=== PATIENT | female | born 1970 | race African-American/Black ===

== ENCOUNTER 2016-12-17 08:20 | Emergency (ER) | payer OTHER ==
[~2016-12-17 08:20] MED LIST: AMOXICILLIN500 M1 PO; BACTRIM DS TABL1 TA1 PO; BACTRIM DS TABL1 TA2 PO; CHLOROSEPTIC SPRAY; CIPRO PO; CLARITHROMYCIN500 MG PO; DIFLUCAN100 MG PO; K-DUR20 ME1 DOB; LORTAB 5-325 M1 EACH PO; MELOXICAM15 MG PO; MOTRIN600 M2 PO; MUCINEX PO; NAPROSYN250 M1 PO; NO MEDICATIONS; NORCO1 TAB 10/3 PO; PEPTO-BISMOL262 M1 PO; PHENERGAN W/CO120 ML PO; PRILOSEC20 MG DOB; PYRIDIUM PO; ULTRAM PO; VICODIN 5/1 TAB 5/50 PO
== END 2016-12-17 08:54 | disposition home or self-care (01) ==
LOC: SED 08:20
DX: J40 Bronchitis, not specified as acute or chronic (principal)
CPT/HCPCS: 99282

== ENCOUNTER → 2017-01-14 | Outpatient (CLI) | payer OTHER ==
--- NOTE | ~2017-01-14 | MY11 ---
[facility] A Service of [facility] RADIOLOGY TEXT RESULTS PATIENT: LAURA MCINTYRE LOCATION: [facility] : 72 UNIT #: [id number] AGE: [address]: Ricci Perdomo MD SEX: F ORDER DR: [id number] [facility] [address] [place], [place] [address] [id number] O MR#: [id number] Acc #: [id number] NAME: LAURA MCINTYRE : 1970 SEX: F STUDY DATE/TIME: 01/14/2017 9:25 UNIT: [facility] ROOM: STUDY DESCRIPTION: MY Mammogram Screening Dig Kg Attending Physician: Sophie Perdomo M.D. Ordering Physician: Sophie Perdomo M.D. Primary Care Physician: Adolfo Soares M.D. MEDICAL IMAGING REPORT This report is preliminary unless electronic signature is present EXAM Digital screening mammogram, 01/14/2017, [facility]. HISTORY 46-year-old woman no risk elevation. Annual screen. COMPARISON Mammograms date to 08/20/2009 with most recent 08/13/2015. FINDINGS Digital imaging of each breast was completed utilizing a two-view examination of each breast in craniocaudal and mediolateral-oblique projections. Review and interpretation of digital mammograms include a second review in conjunction with FDA-approved CAD device. There is a normal parenchymal presentation bilaterally consistent with the patient's age. There are no breast masses imaged and no parenchymal asymmetry is visualized. There are no suspicious microcalcifications and I see no focal architectural disturbance. IMPRESSION Negative screening digital mammogram. One-year followup recommended. Patients over the age of 40 are entered into a reminder system with target due date for the next mammogram. A result letter will also be sent to the patient. BIRADS: 1 Negative Dictated by... Mikal Hopson M.D. [facility] A Service [facility] RADIOLOGY TEXT RESULTS PATIENT: LAURA MCINTYRE LOCATION: [facility] : 72 UNIT #: [id number] AGE: [address]: Ricci Perdomo MD SEX: F ORDER DR: THIS IS AN ELECTRONICALLY VERIFIED REPORT Mikal Hopson M.D. at 01/14/2017 11:30 AM Doni TD: 01/14/2017 11:13 JOB #: [id number] MEDICAL IMAGING REPORT Page 1 of 1 COPY
== END | disposition home or self-care (01) ==
LOC: CWCC 08:37
DX: Z12.31 Encounter for screening mammogram for malignant neoplasm of breast (principal)
CPT/HCPCS: G0202

== ENCOUNTER 2017-04-25 01:52 | Emergency (ER) | payer OTHER ==
[~2017-04-25] VITALS: Ht 165.1 cm; Wt 86.2 kg
== END 2017-04-25 02:32 | disposition home or self-care (01) ==
LOC: SED 01:52
DX: J06.9 Acute upper respiratory infection, unspecified (principal); Z90.710 Acquired absence of both cervix and uterus
CPT/HCPCS: 99283